=== PATIENT | male | born 1975 | race African-American/Black ===

== ENCOUNTER 2018-08-16 09:12 | Emergency (ER) | payer OTHER ==
[~2018-08-16] VITALS: Ht 172.7 cm; Wt 84.4 kg
[2018-08-16 09:23] VITALS: BP 118/79
[2018-08-16] MEDS ORDERED: KETOROLAC TROMETH 60MG/2ML VIAL IM ONE (10:45)
== END 2018-08-16 11:36 | disposition home or self-care (01) ==
LOC: ER 09:12
DX: S40.011A Contusion of right shoulder, initial encounter (principal); S46.811A Strain of other muscles, fascia and tendons at shoulder and upper arm level, right arm, initial encounter; F17.210 Nicotine dependence, cigarettes, uncomplicated; W23.0XXA Caught, crushed, jammed, or pinched between moving objects, initial encounter; Y93.89 Activity, other specified; Y99.0 Civilian activity done for income or pay; Y92.69 Other specified industrial and construction area as the place of occurrence of the external cause
CPT/HCPCS: 73000; 73030; 73060; 73080; 96372; 99283; J1885

== ENCOUNTER 2020-01-04 12:14 | Inpatient (IN) | payer SELFPAY ==
[~2020-01-04] VITALS: Ht 172.7 cm; Wt 86.2 kg
[2020-01-04 12:49] LABS: Basophils # (auto) 0 10 ^3/uL (0-0.2); Basophils % (auto) 0.6 % (0.0-2.0); Eosinophils # (auto) 0.1 10 ^3/uL (0-0.8); Eosinophils % (auto) 1.8 % (0.0-7.0); Hematocrit 49.5 % (41.0-53.0); Hemoglobin 16.5 g/dL (13.5-17.5); Lymphocytes # (auto) 1.7 10 ^3/uL (0.4-5.4); Lymphocytes % (auto) 28.5 % (10.0-50.0); Mean Corpuscular Hemoglobin 32.7 pg (28.0-32.0); Mean Corpuscular Hgb Conc. 33.4 g/dL (32.0-36.0); Mean Corpuscular Volume 97.9 fL (80.0-100.0); Monocytes # (auto) 0.3 10 ^3/uL (0-1.3); Monocytes % (auto) 4.9 % (0.0-12.0); Neutrophils # (auto) 3.8 10 ^3/uL (1.6-8.6); Neutrophils % (auto) 64.2 % (37.0-80.0); Nucleated Red Blood Cells % 0.2 %; Platelet Count (auto) 289 10^3/uL (140-450); Red Blood Cells 5.06 10^6/uL (4.5-5.90); Red Cell Distribution Width 14.6 % (11.8-14.3); White Blood Cell 5.9 10^3/uL (4.4-10.8)
[2020-01-04 13:10] LABS: Albumin 3.6 g/dL (3.4-5.0); Anion Gap 5 (5-15); Blood Urea Nitrogen 10 mg/dL (7-18); Calcium 9.6 mg/dL (8.5-10.1); Carbon Dioxide 28 mmol/L (21-32); Chloride 107 mmol/L (98-107); Glucose 93 mg/dL (74-106); Magnesium 2.3 mg/dL (1.6-2.6); Potassium 4.3 mmol/L (3.5-5.1); Sodium 140 mmol/L (136-145)
[2020-01-04 13:19] LABS: Alanine Aminotransferase 30 U/L (16-61); Alkaline Phosphatase 80 U/L (45-117); Aspartate Aminotransferase 19 U/L (15-37); BUN/Creatinine Ratio 8.8; Bilirubin, Total 0.5 mg/dL (0.2-1.0); GFR African American 92 mL/min; GFR Non-African American 76 mL/min; Total Protein 8.5 g/dL (6.4-8.2)
[2020-01-04 14:09] LABS: INR 1.04 (0.9-1.15)
[2020-01-04 15:09] LABS: Urine WBC None Seen /hpf (0 - 3)
[2020-01-04 15:24] LABS: Urine Bacteria NONE SEEN /hpf (None Seen); Urine Blood Negative /uL (Negative); Urine Mucus FEW (None Seen); Urine Specific Gravity 1.019 (1.001-1.035)
[2020-01-04 15:35] LABS: Alcohol, Urine < 3.0 mg/dL (0-10); Amphetamine Screen, Urine NEGATIVE (NEGATIVE); Barbiturate Scree,Urine NEGATIVE (NEGATIVE); Benzodiazephine Screen, Urine NEGATIVE (NEGATIVE); Cannabinoid Screen, Urine POSITIVE (NEGATIVE); Opiate Scree,Urine NEGATIVE (NEGATIVE); Phencyclidine Screen, Urine NEGATIVE (NEGATIVE)
[2020-01-04 15:42] LABS: Cocaine Screen, Urine NEGATIVE (NEGATIVE)
[2020-01-04] MEDS ORDERED: ASPirin 81 mg TAB PO ONE (16:45)
[2020-01-04] MEDS ORDERED: NITROGLYCERIN 0.4 MG SL TAB SL PRN ×2 (17:15→18:30)
[2020-01-04] MEDS ORDERED: MORPHINE SULF INJ 2 MG/ML SYRINGE 1ML IV PRN ×3 (17:15→18:30)
[2020-01-04] MEDS: SODIUM CHLORIDE 0.9% 1,000 ML IV SCH (18:26)
[2020-01-04] MEDS ORDERED: METHOCARBAMOL 500 MG TAB PO ONE (18:30)
[2020-01-04] MEDS ORDERED: LORazepam 0.5 MG TAB PO PRN (18:30)
[2020-01-04] MEDS ORDERED: ONDANSETRON HCL 4 MG/2 ML VIAL IV PRN (18:30)
[2020-01-04] MEDS ORDERED: ALUM & MAG HYDROX-SIMETH LIQ(MAALOX) 30 ML PO PRN (18:30)
[2020-01-04] MEDS ORDERED: ATORVASTATIN 20 MG TAB PO ONE (18:30)
[2020-01-04] MEDS ORDERED: DOCUSATE SOD 100 MG CAP PO PRN (18:30)
[2020-01-04] MEDS ORDERED: HYDROcodone-ACET 5/325MG TAB PO PRN (18:30)
[2020-01-04] MEDS ORDERED: ACETAMINOPHEN 325 MG TAB PO PRN (18:30)
[2020-01-04 19:10] LABS: Cholesterol 170 mg/dL (< 200)
[2020-01-04 19:13] LABS: HDL Cholesterol 52 mg/dL (40-59); LDL Cholesterol 106 mg/dL (< 100); Triglycerides 116 mg/dL (< 150)
[2020-01-04 20:38] VITALS: BP 115/66
--- NOTE | 2020-01-04 20:38 | NUR ---
MS admit from ER ANGELA PAVON admitted to tele/MS after SBAR not received. Patient oriented to Elaina Flores, RN primary RN, unit, room, bed, and unit policies regarding patient care and visiting hours. Patient weighed by bedscale and encouraged to call if they need something. All questions and concerns addressed, patient verbalized understanding. No S/S of distress or pain at this time. Pt states that his chest pain comes and goes. Pt denies any pain medication at this time. Will continue to monitor status q1h and PRN
[2020-01-04] MEDS ORDERED: METHOCARBAMOL 500 MG TAB PO PRN (22:00)
[2020-01-04 22:18] VITALS: BP 115/66
[2020-01-04] MEDS ORDERED: CYCL7.5T45 PO (23:18)
[2020-01-04] MEDS ORDERED: IBUP-781 PO (23:18)
[2020-01-05 04:51] VITALS: BP 107/75
[2020-01-05 08:25] VITALS: BP 117/82
--- NOTE | 2020-01-05 08:25 | NUR ---
Patient resting comfortably in bed with no complaint of chest pain at this time. Patient stable.
[2020-01-05 09:00] VITALS: BP 117/82
--- NOTE | 2020-01-05 09:39 | NUR ---
Scheduled medications given per order. Patient still denies any chest pain at this time. Patient stable.
[2020-01-05] MEDS ORDERED: ENOXAPARIN SOD 40 MG/0.4 ML SYRINGE SC SCH (10:00)
[2020-01-05] MEDS ORDERED: ASPirin 81 mg TAB PO SCH (10:00)
[2020-01-05] MEDS: SODIUM CHLORIDE 0.9% 1,000 ML IV SCH (11:13)
--- NOTE | 2020-01-05 11:15 | NUR ---
Patient resting comfortably in bed with Dr. Cline at bedside. Started new IVF bag. Patient stable.
[2020-01-05 13:00] VITALS: BP 132/96
[2020-01-05] MEDS ORDERED: LORazepam 2MG/ML-1ML VIAL IV ONE (13:00)
--- NOTE | 2020-01-05 15:10 | NUR ---
Patient resting comfortably in bed with 2D Echo in progress. Patient stable.
--- NOTE | 2020-01-05 15:20 | NUR ---
Patient taken via wheelchair to Dept for MRI.
--- NOTE | 2020-01-05 15:38 | NUR ---
ss consult Per consult patient does not have any PCP. Carmen Powell seen patient today for PCP/ discharge clinic. Addendum: 01/05/20 at 1539 by Carmen TOLENTINO Amended: Links added.
--- NOTE | 2020-01-05 15:45 | NUR ---
Patient returned to unit in stable condition.
--- NOTE | 2020-01-05 16:30 | NUR ---
Patient resting quietly in bed with no complaint of pain. Patient stable.
[2020-01-05 17:00] VITALS: BP 133/81
--- NOTE | 2020-01-05 18:15 | NUR ---
Patient sitting in bed with no distress noted. Patient stable throughout shift.
--- NOTE | 2020-01-05 19:20 | NUR ---
Opening Shift Note Assumed care of patient, awake and alert. No S/S of distress/SOB or pain.Patient requesting to leave AMA patient instructed on pending lab and POC. patient refusing assessment and staying " i want to leave the doctor told me i am cleared" patient reeducated on pending lab/consults. patient refuse, requesting to leave. cupola charger made aware.
--- NOTE | 2020-01-05 20:34 | NUR ---
AMA Note ANGELA PAVON states they want to leave the hospital Against Medical Advice (AMA). Patient encouraged to stay for further treatment/stabilization. Hospitalist Vaughn patrick paged awaiting call back. Patient advised of the risks and benefits of leaving AMA. Patient verbalized understanding. Patient encouraged to return to the ER if symptoms do not improve or worsen. all belongings taken by patient. IV removed. with catheter intact. IV DC'd with clean sterile technique, catheter fully intact. Pressure dressing applied to site. Patient tolerated well. .Telebox removed and sent to icu.Patient left denies sob distress or pain. full charge bookkeeper notified.
--- NOTE | 2020-01-05 21:15 | NUR ---
celina montoya called back and made aware of patient leaving ama. material handling warehouse supervisor notified [phone]
[2020-01-05] MEDS ORDERED: ATORVASTATIN 20 MG TAB PO SCH (22:00)
== END 2020-01-05 20:32 | disposition left against medical advice (07) | DRG 69 ==
LOC: ER 12:14 → TELE 12:15 → TELE-WESTW 21:09
PROVIDERS: ADMIT Hospitalist; ATTEND Internal Medicine
DX: G45.9 Transient cerebral ischemic attack, unspecified (principal); I20.0 Unstable angina; I10 Essential (primary) hypertension; F17.210 Nicotine dependence, cigarettes, uncomplicated; R47.81 Slurred speech; Z82.49 Family history of ischemic heart disease and other diseases of the circulatory system
CPT/HCPCS: 36415; 70450; 70551; 71045; 71046; 80053; 80061; 80307; 81001; 83036; 83735; 83880; 84484; 85025; 85379; 85610; 85730; 87086; 93005; 93306; 93886; G0378

== ENCOUNTER 2023-03-18 04:32 | Emergency (ER) | payer OTHER ==
[~2023-03-18] VITALS: Ht 172.7 cm; Wt 91.0 kg
[~2023-03-18 04:32] MED LIST: CYCL-838 PO; IBUP1TAB4 PO
[2023-03-18 04:59] LABS: Basophils # (auto) 0 10 ^3/uL (0-0.2); Basophils % (auto) 0.4 % (0.0-2.0); Eosinophils # (auto) 0.1 10 ^3/uL (0-0.8); Eosinophils % (auto) 1.5 % (0.0-7.0); Hematocrit 45.9 % (41.0-53.0); Hemoglobin 15.5 g/dL (13.5-17.5); Lymphocytes # (auto) 1.6 10 ^3/uL (0.4-5.4); Lymphocytes % (auto) 26.1 % (10.0-50.0); Mean Corpuscular Hemoglobin 33.1 pg (28.0-32.0); Mean Corpuscular Hgb Conc. 33.8 g/dL (32.0-36.0); Mean Corpuscular Volume 97.9 fL (80.0-100.0); Monocytes # (auto) 0.3 10 ^3/uL (0-1.3); Monocytes % (auto) 4.9 % (0.0-12.0); Neutrophils % (auto) 67.1 % (37.0-80.0); Red Blood Cells 4.69 10^6/uL (4.5-5.90); Red Cell Distribution Width 15.4 % (11.8-14.3)
[2023-03-18 05:04] LABS: Urine Bacteria NONE SEEN /hpf (None Seen); Urine Blood Negative /uL (Negative); Urine Clarity Clear (Clear); Urine Color Yellow (Yellow); Urine Mucus FEW (None Seen); Urine Protein, UAD 1+ (Negative); Urine Specific Gravity 1.026 (1.001-1.035); Urine WBC 1 /hpf (0 - 3)
[2023-03-18 05:11] LABS: Alanine Aminotransferase 22 U/L (7-40); Albumin 4.5 g/dL (3.2-4.8); Alkaline Phosphatase 76 U/L (46-116); Anion Gap 5 (5-15); Aspartate Aminotransferase 19 U/L (13-40); BUN/Creatinine Ratio 6.9 (10.0-20.0); Blood Urea Nitrogen 8 mg/dL (9-23); Calcium 9.1 mg/dL (8.7-10.4); Carbon Dioxide 28 mmol/L (20-30); Chloride 106 mmol/L (98-107); Glucose 98 mg/dL (74-106); Lipase 38 U/L (12-53); Potassium 4.1 mmol/L (3.5-5.1); Sodium 139 mmol/L (136-145)
[2023-03-18 05:12] LABS: Bilirubin, Total 0.4 mg/dL (0.2-1.0); Total Protein 7.9 g/dL (5.7-8.2)
[2023-03-18] MEDS ORDERED: PANT40TA2 PO (08:11)
[2023-03-18] MEDS ORDERED: DONNATAL 5ml ORAL Elix (BELLADONNA ALK-PHENOBARB) PO ONE (08:15)
[2023-03-18] MEDS ORDERED: LIDOCAINE VISCOUS 2% 15ML UD PO ONE (08:15)
[2023-03-18] MEDS ORDERED: MAALOX PLUS or MAALOX 30 ML PO ONE (08:15)
[2023-03-18 11:42] VITALS: BP 136/80; PULSE 60; RESP 15; TEMP 97.6; O2SAT 99
== END 2023-03-18 12:00 | disposition home or self-care (01) ==
LOC: ER 04:32
DX: K29.70 Gastritis, unspecified, without bleeding (principal); F17.210 Nicotine dependence, cigarettes, uncomplicated; F12.10 Cannabis abuse, uncomplicated; I10 Essential (primary) hypertension
CPT/HCPCS: 36415; 74176; 80053; 81001; 83690; 85025